=== PATIENT | female | born 1990 | race American Indian/Alaskan Native ===

== ENCOUNTER 2021-03-31 20:54 | Emergency (ER) | payer BC ==
[2021-03-31 21:45] VITALS: BP 120/84
--- NOTE | 2021-04-01 12:36 | Electrocardiograph Report ---
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
== END 2021-04-01 03:35 | disposition left against medical advice (07) ==
LOC: ED 20:54
DX: R07.89 Other chest pain (principal); Z53.21 Procedure and treatment not carried out due to patient leaving prior to being seen by health care provider
CPT/HCPCS: 93005

== ENCOUNTER 2021-06-23 13:26 | Emergency (ER) | payer BC, OTHER ==
[2021-06-23 13:47] VITALS: BP 123/86
[2021-06-23] MEDS ORDERED: IBUPROFEN 800 MG TAB PO ONE (14:09)
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
== END 2021-06-23 15:32 | disposition home or self-care (01) ==
LOC: ED 13:26
DX: S13.4XXA Sprain of ligaments of cervical spine, initial encounter (principal); S00.03XA Contusion of scalp, initial encounter; Z79.899 Other long term (current) drug therapy; V89.2XXA Person injured in unspecified motor-vehicle accident, traffic, initial encounter; Y93.89 Activity, other specified; Y92.488 Other paved roadways as the place of occurrence of the external cause; Y99.8 Other external cause status
CPT/HCPCS: 70450; 72125; 99284